=== PATIENT | male | born 2000 | race Caucasian/White ===

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

== ENCOUNTER 2021-04-16 17:00 | Emergency (ER) | payer OTHER ==
[2021-04-16 17:28] VITALS: BP 100/63; PULSE 50; TEMP 98.6
[2021-04-16] MEDS ORDERED: IBUPROFEN 600 MG TABLET (FP) PO ONE ×2 (17:48→17:49)
== END 2021-04-16 18:04 | disposition home or self-care (01) ==
LOC: JERFT 17:00
DX: M25.561 Pain in right knee (principal); X50.0XXA Overexertion from strenuous movement or load, initial encounter; Y93.67 Activity, basketball
CPT/HCPCS: 73564-TC-RT-FY; 99283-25